=== PATIENT | male | born 1960 | race Caucasian/White ===

== ENCOUNTER 2025-02-24 09:07 | Outpatient (CLI) | payer BC | END 2025-02-24 09:08 | disposition home or self-care (01) | LOC: SCSMRI 09:07 | PROVIDERS: ATTEND Family Medicine | DX: S86.091D Other specified injury of right Achilles tendon, subsequent encounter (principal); S76.011D Strain of muscle, fascia and tendon of right hip, subsequent encounter; R60.0 Localized edema ==